=== PATIENT | female | born 1975 | race Caucasian/White ===

== ENCOUNTER 2018-02-26 16:46 | Emergency (ER) | payer OTHER ==
[~2018-02-26] VITALS: Ht 160 cm; Wt 113.4 kg
--- OUTSIDE RECORDS SUMMARY | 2018-02-26 16:49 | XMS REPORT | Summary of Care ---
Author Author Allie Pastrana M.A. Unknown Address Unknown Phone Unavailable Care Team Providers Care Daycare Manager Name Role Phone MATHEW THOMPSON M.D. Unavailable Unavailable CYRUS N.P.HANH Unavailable Unavailable Unavailable Unavailable Functional Status Name Dates Details Functional status health issues are not documented Status: Name Dates Details Cognitive status health issues are not documented Status: Problems Name Dates Details Annual physical exam (V70.0, Z00.00) Status: Active Heavy smoker (305.1, F17.200) Status: Active Positive depression screening (796.4, Z13.31) Status: Active Anxiety and depression (300.00, F41.9) Status: Active Breast screening (V76.10, Z12.31) Status: Active Encounter to discuss test results (V65.49, Z71.2) Status: Active Hyperlipidemia (272.4, E78.5) Status: Active Diabetes mellitus, type 2 (250.00, E11.9) Status: Active Diabetic neuropathy (250.60, E11.40) Status: Active Anxiety (300.00, F41.9) Status: Active Panic disorder (300.01, F41.0) Status: Active Major depression (296.20, F32.9) Status: Active Depression, unspecified depression type (311, F32.9) Status: Active Severe diarrhea (787.91, K52.9) Status: Active Nausea and vomiting (787.01, R11.2) Status: Active Medications Name Dates Details GlipiZIDE 10 MG Oral Tablet TAKE 1 TABLET DAILY. Active Lantus SOLN * Refills: 0 Active Omeprazole 40 MG Oral Capsule Delayed Release 1 tab daily * Refills: 0 Active Mcdowell 3 CAPS TAKE DIRECTED. * Refills: 0 Active Atorvastatin Calcium 10 MG Oral Tablet TAKE 1 TABLET DAILY DIRECTED. * Quantity: 90 Refills: 0 BRIDGES N.P., SHIFAT * Start : 14-Jan-2018 End : 14-Apr-2018 Active Gabapentin 300 MG Oral Capsule TAKE 1 CAPSULE 3 TIMES DAILY. * Quantity: 90 Refills: 3 BRIDGES N.P., SHIFAT * Start : 14-Jan-2018 End : 14-May-2018 Active ClonazePAM 0.5 MG Oral Tablet Take one tab twice per day as needed for episodes of high anxiety. * Quantity: 60 Refills: 2 MATHEW THOMPSON M.D. * Start : 02-Feb-2018 Active TraZODone HCl - 50 MG Oral Tablet Take one to two tabs at bedtime as needed for sleep. * Quantity: 60 Refills: 3 MATHEW THOMPSON M.D. * Start : 02-Feb-2018 Active DULoxetine HCl - 60 MG Oral Capsule Delayed Release Particles Take one cap daily. * Quantity: 30 Refills: 3 MATHEW THOMPSON M.D. * Start : 02-Feb-2018 Active Allergies and Adverse Reactions Name Dates Details No Known Drug Allergies (Allergy) Status: Active Past Medical History Name Dates Details History of anxiety (V11.8, Z86.59) Status: Resolved History of asthma (V12.69, Z87.09) Status: Resolved History of depression (V11.8, Z86.59) Status: Resolved History of diabetes mellitus (V12.29, Z86.39) Status: Resolved History of high cholesterol (V12.29, Z86.39) Status: Resolved History of History of appendectomy (V45.89, Z90.49) Status: Resolved History of History of cholecystectomy (V45.79, Z90.49) Status: Resolved History of History of hysterectomy (V88.01, Z90.710) Status: Resolved History of Reflux gastritis (535.40, K29.60) Status: Resolved History of Vision abnormalities (368.9, H53.9) Status: Resolved Procedures Procedure Dates Details [O] Urine Dipstick (In Office) Date: 26-Feb-2018 [place] Breast mammogram screen bilateral [id number] Date: 31-Dec-2017 Immunization Name Dates Details Immunizations not documented Family History Name Dates Details Family history of Alcohol abuse (305.00, F10.10) Comments: Family History Status: Active Family history of malignant neoplasm (V16.9, Z80.9) Comments: Family History Status: Active Family history of diabetes mellitus (V18.0, Z83.3) Comments: Family History Status: Active Family history of cerebrovascular accident (CVA) (V17.1, Z82.3) Comments: Family History Status: Active Family history of myocardial infarction (V17.3, Z82.49) Comments: Family History Status: Active Family history of drug abuse (V61.41, Z63.72) Comments: Family History Status: Active Name Dates Details No pertinent family history (V49.89, Z78.9) Status: Active Social History Name Dates Details - Status: Name Dates Details Current every day smoker Smoker. current status unknown Current every day smoker Never smoker Vital Signs Date Test Result Details [id number] BP Systolic 135 mm[Hg] Status: BP Diastolic 87 mm[Hg] Status: Weight 250.25 lb Status: Body Mass Index Calculated 44.33 kg/m2 Status: Body Surface Area Calculated 2.13 m2 Status: Temperature 98.2 f Status: Heart Rate 102 /min Status: O2 SAT 98 % Status: Physical Findings 12 Status: Comments: PHQ-9 Adult Depression Screening [id number]:19 BP Systolic 114 mm[Hg] Status: Comments: Location: RUE; Position: Sitting BP Diastolic 75 mm[Hg] Status: Comments: Location: RUE; Position: Sitting Weight 264.8 lb Status: Body Mass Index Calculated 46.91 kg/m2 Status: Body Surface Area Calculated 2.18 m2 Status: Temperature 97.6 f Status: Comments: Method: Tympanic Heart Rate 84 /min Status: O2 SAT 98 % Status: Comments: Source: RA Results Date Description Value Details Results not documented Plan of Care Name Dates Details Planned Observations Planned Goals not documented Planned Encounters Appointment; MATHEW THOMPSON M.D. On: 06-Apr-2018 18:30 Appointment; HANH BRIDGES NP On: 29-Apr-2018 11:00 Interventions Provided Labs/Procedures/Imaging* [O] Urine Dipstick (In Office); To Be Done: 26 Feb 2018 Plan* pt was sent to ER due to possible dehydration, pt has tachycardia and severe diarrhea 20-25 times a day with vomiting 2-3 times a day, since Thursday. Instructions Name Dates Details Instructions not documented Encounters Appointment; HANH BRIDGES NP Encounter Diagnosis: Problem not documented On: 31-Dec-2017 9:15 Appointment; TONYA BAL LCSW Encounter Diagnosis: Problem not documented On: 07-Jan-2018 8:00 Appointment; HANH BRIDGES NP Encounter Diagnosis: Problem not documented On: 14-Jan-2018 15:00 Appointment; TONYA BAL LCSW Encounter Diagnosis: Problem not documented On: 21-Jan-2018 10:00 Appointment; MATHEW THOMPSON M.D. Encounter Diagnosis: Problem not documented On: 02-Feb-2018 17:30 Appointment; TONYA BAL LCSW Encounter Diagnosis: Problem not documented On: 04-Feb-2018 10:00 Appointment; HANH BRIDGES NP Encounter Diagnosis: Problem not documented On: 26-Feb-2018 14:15
--- OUTSIDE RECORDS SUMMARY | 2018-02-26 16:49 | XMS REPORT | Clinical Summary ---
Author Author [facility] Address Unknown Phone Unavailable Care Team Providers Care Top Tile Decorator Name Role Phone Fred Roach MD PCP Allergies No Known Allergies Current Medications Prescription Sig. Disp. Refills Start End Date Status Date cephalexin (KEFLEX) 500 Take 1 capsule (500 mg 20 capsule 0 02/10/20 02/10/20 Discontin MG capsule total) by mouth 2 (two) 18 18 ued times a day for 10 days. ondansetron (ZOFRAN) 4 MG Take 1 tablet (4 mg 12 tablet 0 02/10/20 02/10/20 Discontin tablet total) by mouth every 6 18 18 ued (six) hours for 3 days. cephalexin (KEFLEX) 500 Take 1 capsule (500 mg 20 capsule 0 02/10/20 02/20/20 MG capsule total) by mouth 2 (two) 18 18 times a day for 10 days. ondansetron (ZOFRAN) 4 MG Take 1 tablet (4 mg 12 tablet 0 02/10/20 02/13/20 tablet total) by mouth every 6 18 18 (six) hours as needed for nausea or vomiting for up to 3 days. fluconazole (DIFLUCAN) Take 1 tablet (150 mg 1 tablet 0 02/10/20 02/10/20 150 MG tablet total) by mouth once for 18 18 1 dose. Active Problems Not on file Encounters Date Type Specialty Care Team Description 02/09/2018 Emergency Emergency Medicine Paul Higgins MD Urinary tract infection without hematuria, site unspecified (Primary Dx); Medication side effect, initial encounter after 02/25/2017 Social History Tobacco Use Types Packs/Day Years Used Date Current Every Day Smoker Alcohol Use Drinks/Week oz/Week Comments No Sex Assigned at Date Recorded Not on file Last Filed Vital Signs Vital Sign Reading Time Taken Blood Pressure 124/67 02/09/2018 7:15 PM CDT Pulse 64 02/09/2018 7:15 PM CDT Temperature 36.9 C (98.5 F) 02/09/2018 7:15 PM CDT Respiratory Rate 17 02/09/2018 7:15 PM CDT Oxygen Saturation 94% 02/09/2018 5:21 PM CDT Inhaled Oxygen - - Concentration Weight 120 kg (265 lb) 02/09/2018 3:02 PM CDT Height 160 cm (5' 3") 02/09/2018 3:02 PM CDT Body Mass Index 46.94 02/09/2018 3:02 PM CDT Plan of Treatment Not on file Procedures Procedure Name Priority Date/Time Associated Diagnosis Comments ESTIMATED GFR STAT 02/09/2018 Results for this 4:28 PM CDT procedure are in the results section. HCG QUALITATIVE, SERUM STAT 02/09/2018 Results for this SCREEN 4:28 PM CDT procedure are in the results section. HC COMPLETE BLD COUNT STAT 02/09/2018 Results for this W/AUTO DIFF 4:28 PM CDT procedure are in the results section. COMPREHENSIVE METABOLIC STAT 02/09/2018 Results for this PANEL 4:28 PM CDT procedure are in the results section. URINALYSIS SCREEN AND STAT 02/09/2018 Results for this MICROSCOPY, WITH REFLEX 4:23 PM CDT procedure are in the TO CULTURE results section. GRAM STAIN STAT 02/09/2018 Results for this 4:23 PM CDT procedure are in the results section. URINE CULTURE STAT 02/09/2018 Results for this 4:23 PM CDT procedure are in the results section. after 02/25/2017 Results * Estimated GFR (02/09/2018 4:28 PM) Estimated GFR >=90 mL/min/1.73 m2 [facility] DEPARTMENT OF Comment: PATHOLOGY AND CatergoryUnitsInte GENOMIC MEDICINE rpretation G1 >=90 Normal or high G2 60-89Mildly decreased [id number] Mildly to moderately decreased S3q46-05 Moderately to severely decreased G4 15-29Severely decreased G5 <15Kidney failure The eGFR was calculated using the Chronic Kidney Disease Epidemiology Collaboration (CKD-EPI) equation. Interpretation is based on recommendations of the National Kidney Foundation-Kidney Disease Outcomes Quality Initiative (NKF-KDOQI) published in 2014. Specimen Plasma specimen Performing Organization Address City/[facility]/Zipcode Phone Number [facility] [id number] [place], [place] [address]y. [address] [phone] PATHOLOGY AND GENOMIC MEDICINE * CBC with platelet and differential (02/09/2018 4:28 PM) WBC 13.7 (H) 4.5 - 11.0 k/uL [facility] DEPARTMENT OF PATHOLOGY AND GENOMIC MEDICINE RBC 5.30 4.20 - 5.50 M/uL [facility] DEPARTMENT OF PATHOLOGY AND GENOMIC MEDICINE HGB 16.7 14.0 - 18.0 g/dL [facility] DEPARTMENT OF PATHOLOGY AND GENOMIC MEDICINE HCT 47.8 (H) 37.0 - 47.0 % [facility] DEPARTMENT OF PATHOLOGY AND GENOMIC MEDICINE MCV 90.2 82.0 - 100.0 fL [facility] DEPARTMENT OF PATHOLOGY AND GENOMIC MEDICINE MCH 31.5 27.0 - 34.0 pg [facility] DE[facility]OLOG[facility] AND GENOMIC MEDICINE MCHC 34.9 31.0 - 37.0 g/dL [facility] DEPARTMENT OF PATHOLOGY AND GENOMIC MEDICINE RDW - SD 40.1 37.0 - 55.0 fL [facility] DEPARTMENT OF PATHOLOGY AND GENOMIC MEDICINE MPV 10.7 8.8 - 13.2 fL [facility] DE[facility] OF PATHOLOGY AND GENOMIC MEDICINE Platelet count 259 150 - 400 K/uL [facility] DEPARTMENT OF PATHOLOGY AND GENOMIC MEDICINE Nucleated RBC 0.00 /100 WBC [facility] DEPARTMENT OF PATHOLOGY AND GENOMIC MEDICINE Neutrophils 64.9 39.0 - 69.0 % [facility] DEPARTMENT OF PATHOLOGY AND GENOMIC MEDICINE Lymphocytes 25.8 25.0 - 45.0 % [facility] DEPARTMENT OF PATHOLOGY AND GENOMIC MEDICINE Monocytes 6.2 0.0 - 10.0 % [facility] DEPARTMENT OF PATHOLOGY AND GENOMIC MEDICINE Eosinophils 2.1 0.0 - 5.0 % [facility] DEPARTMENT OF PATHOLOGY AND GENOMIC MEDICINE Basophils 0.6 0.0 - 1.0 % [facility] DEPARTMENT OF PATHOLOGY AND GENOMIC MEDICINE Immature granulocytes 0.4Comment: "Immature 0.0 - 1.0 % [facility] DEPARTMENT OF granulocytes" (promyelocytes, PATHOLOGY AND myelocytes, metamyelocytes) GENOMIC MEDICINE Specimen Blood Performing Organization Address City/State/Zipcode Phone Number [facility] [id number] [place] [address] [address] [phone] PATHOLOGY AND GENOMIC MEDICINE * hCG qualitative, serum screen (02/09/2018 4:28 PM) hCG qualitative, serum NegativeComment: Sensitivity: [facility] DEPARTMENT OF 10 mlUhCG/mL in Serum PATHOLOGY AND GENOMIC MEDICINE Specimen Blood Performing Organization Address City/[facility]/Zipcode Phone Number [address] [phone] PATHOLOGY AND GENOMIC MEDICINE * Comprehensive metabolic panel (02/09/2018 4:28 PM) Sodium 142 135 - 148 mEq/L [facility] DEPARTMENT OF PATHOLOGY AND GENOMIC MEDICINE Potassium 4.2 3.5 - 5.0 mEq/L [facility] DEPARTMENT OF PATHOLOGY AND GENOMIC MEDICINE Chloride 101 99 - 109 mEq/L [facility] DEPARTMENT OF PATHOLOGY AND GENOMIC MEDICINE CO2 27 24 - 31 mEq/L [facility] DEPARTMENT OF PATHOLOGY AND GENOMIC MEDICINE Anion gap 14@ANIO 7 - 15 mEq/L [facility] DEPARTMENT OF PATHOLOGY AND GENOMIC MEDICINE BUN 10 8 - 24 mg/dL [facility] DEPARTMENT OF PATHOLOGY AND GENOMIC MEDICINE Creatinine 0.80 0.50 - 0.90 mg/dL [facility] DEPARTMENT OF PATHOLOGY AND GENOMIC MEDICINE Glucose 246 (H) 65 - 99 mg/dL [facility] DEPARTMENT OF PATHOLOGY AND GENOMIC MEDICINE Calcium 9.9 8.6 - 10.6 mg/dL [facility] DEPARTMENT OF PATHOLOGY AND GENOMIC MEDICINE Protein 7.5 6.3 - 8.2 g/dL [facility] DEPARTMENT OF PATHOLOGY AND GENOMIC MEDICINE Albumin 4.6 3.5 - 5.0 g/dL [facility] DEPARTMENT OF PATHOLOGY AND GENOMIC MEDICINE A/G ratio 1.59 0.70 - 3.80 [facility] DEPARTMENT OF PATHOLOGY AND GENOMIC MEDICINE Alkaline phosphatase 93 30 - 115 U/L [facility] DEPARTMENT OF PATHOLOGY AND GENOMIC MEDICINE AST 36 15 - 46 U/L [facility] DEPARTMENT OF PATHOLOGY AND GENOMIC MEDICINE ALT 34 10 - 55 U/L [facility] DEPARTMENT OF PATHOLOGY AND GENOMIC MEDICINE Total bilirubin 0.4 0.2 - 1.2 mg/dL [facility] DEPARTMENT OF PATHOLOGY AND GENOMIC MEDICINE Specimen Plasma specimen Performing Organization Address City/[facility]/Zipcode Phone Number [facility] [id number] [place], [place] [address]y. [address] [place] [address] PATHOLOGY AND GENOMIC MEDICINE * Urinalysis screen and microscopy, with reflex to culture (02/09/2018 4:23 PM) Specimen site Clean catch [facility] DEPARTMENT OF PATHOLOGY AND GENOMIC MEDICINE Color, UA Carolyne YELLOW [facility] DEPARTMENT OF PATHOLOGY AND GENOMIC MEDICINE Appearance, UA Hazy (A) Clear [facility] DEPARTMENT OF PATHOLOGY AND GENOMIC MEDICINE Specific gravity, UA 1.023 1.005 - 1.030 [facility] DEPARTMENT OF PATHOLOGY AND GENOMIC MEDICINE pH, UA 5.0 5.0 - 8.0 [facility] DEPARTMENT OF PATHOLOGY AND GENOMIC MEDICINE Protein, UA 1+ (A) Negative [facility] DEPARTMENT OF PATHOLOGY AND GENOMIC MEDICINE Glucose, UA 3+ (A) Negative [facility] DEPARTMENT OF PATHOLOGY AND GENOMIC MEDICINE Ketones, UA Trace (A) Negative [facility] DEPARTMENT OF PATHOLOGY AND GENOMIC MEDICINE Bilirubin, UA Negative Negative [facility] DEPARTMENT OF PATHOLOGY AND GENOMIC MEDICINE Blood, UA Negative Negative [facility] DEPARTMENT OF PATHOLOGY AND GENOMIC MEDICINE Nitrite, UA Positive (A) NEGATIVE [facility] DEPARTMENT OF PATHOLOGY AND GENOMIC MEDICINE Urobilinogen, UA <2.0 <2.0 E.U./dL [facility] DEPARTMENT OF PATHOLOGY AND GENOMIC MEDICINE Leukocyte esterase, UA Trace (A) Negative [facility] DEPARTMENT OF PATHOLOGY AND GENOMIC MEDICINE Epithelial cells, UA 4 0 - 15 /HPF [facility] DEPARTMENT OF PATHOLOGY AND GENOMIC MEDICINE WBC, UA 7 (H) 0 - 5 /Hpf [facility] DEPARTMENT OF PATHOLOGY AND GENOMIC MEDICINE RBC, UA 4 0 - 5 /HPF [facility] DEPARTMENT OF PATHOLOGY AND GENOMIC MEDICINE Bacteria, UA Many (A) None seen [facility] DEPARTMENT OF PATHOLOGY AND GENOMIC MEDICINE Yeast, UA None seen None Seen [facility] DEPARTMENT OF PATHOLOGY AND GENOMIC MEDICINE Yeast with pseudohyphae, None seen [facility] DEPARTMENT OF UA PATHOLOGY AND GENOMIC MEDICINE Specimen Urine Performing Organization Address City/[facility]/Zipcode Phone Number [facility] DEPARTMENT [address] [address] PATHOLOGY AND GENOMIC MEDICINE * Gram stain (02/09/2018 4:23 PM) Gram stain result No WBC's [facility] DEPARTMENT OF Moderate Gram negative rods PATHOLOGY AND Comment: GENOMIC MEDICINE Specimen Information Specimen Source: Urine Specimen Site: Clean catch Specimen Urine Performing Organization Address City/State/Zipcode Phone Number [facility] DEPARTMENT OF [address] [place] [address] PATHOLOGY AND GENOMIC MEDICINE * Urine culture (02/09/2018 4:23 PM) Urine culture isolate Escherichia coli [facility] DEPARTMENT OF >10-5 cfu/ml PATHOLOGY AND (A) GENOMIC MEDICINE Comment: Specimen Information Specimen Source: Urine Specimen Site: Clean catch Urine culture isolate Mixed Gram positive franca [facility] DEPARTMENT OF 10-1 cfu/ml PATHOLOGY AND (A) GENOMIC MEDICINE Specimen Urine Organism Antibiotic Method Susceptibility Escherichia coli Amikacin NICKOLAS <=4 mcg/mL: Susceptible Escherichia coli Amoxicillin/Clavulanate NICKOLAS 8/4 mcg/mL: Susceptible Escherichia coli Ampicillin/Sulbactam NICKOLAS 8/4 mcg/mL: Susceptible Escherichia coli Ampicillin NICKOLAS 16 mcg/mL: Resistant Escherichia coli Aztreonam NICKOLAS <=1 mcg/mL: Susceptible Escherichia coli Cefazolin NICKOLAS 2 mcg/mL: Susceptible Escherichia coli Cefoxitin NICKOLAS 8 mcg/mL: Susceptible Escherichia coli Ceftazidime NICKOLAS <=0.5 mcg/mL: Susceptible Escherichia coli Ceftriaxone NICKOLAS <=0.5 mcg/mL: Susceptible Escherichia coli Cefuroxime Sodium NICKOLAS 8 mcg/mL: Susceptible Escherichia coli Ciprofloxacin NICKOLAS >2 mcg/mL: Resistant Escherichia coli Ertapenem NICKOLAS <=0.13 mcg/mL: Susceptible Escherichia coli Gentamicin NICKOLAS <=1 mcg/mL: Susceptible Escherichia coli Imipenem NICKOLAS <=0.25 mcg/mL: Susceptible Escherichia coli Levofloxacin NICKOLAS >4 mcg/mL: Susceptible Escherichia coli Meropenem NICKOLAS <=0.13 mcg/mL: Susceptible Escherichia coli Minocycline NICKOLAS <=1 mcg/mL: Susceptible Escherichia coli Nitrofurantoin NICKOLAS 32 mcg/mL: Susceptible Escherichia coli Piperacillin/Tazobactam NICKOLAS 4/4 mcg/mL: Susceptible Escherichia coli Tetracycline NICKOLAS 2 mcg/mL: Susceptible Escherichia coli Tigecycline NICKOLAS <=0.5 mcg/mL: Susceptible Escherichia coli Tobramycin NICKOLAS 1 mcg/mL: Susceptible Escherichia coli Trimethoprim/Sulfamethoxa NICKOLAS >2/38 mcg/mL: Resistant daily [facility] Organization Address City/State/Zipcode Phone Number [phone] [place] [address] PATHOLOGY AND GENOMIC MEDICINE after 02/25/2017 Insurance Payer Benefit Subscriber ID Type Phone Address Plan / Group [employer]UT[employer] EXCHANGE LUTZ xxxxxxxxx Exchange [employer] E EXCHANGE
[2018-02-26] MEDS ORDERED: SODIUM CHLORIDE 0.9% 1000ML 1,000 ML IV STA (18:00)
[2018-02-26] MEDS ORDERED: ONDANSETRON HCL INJ 2 MG/ML VIAL ONE (18:11)
[2018-02-26] MEDS ORDERED: ONDANSETRON HCL INJ 2 MG/ML VIAL IV STA (18:11)
[2018-02-26 18:50] LABS: CLARITY,URINE SL CLOUDY (CLEAR); COLOR,URINE YELLOW (YELLOW)
[2018-02-26 18:51] LABS: BILIRUBIN,URINE NEGATIVE (NEGATIVE); KETONES,URINE NEGATIVE (NEGATIVE); LEUKOCYTE ESTERASE ,URINE NEGATIVE (NEGATIVE); NITRITE,URINE NEGATIVE (NEGATIVE); PREGNANCY TEST, URINE NEGATIVE (NEGATIVE); PROTEIN,URINE DIPSTICK TRACE (NEGATIVE); URINE UROBILINOGEN 0.2 mg/dL (0.2 - 1)
[2018-02-26 18:52] LABS: BASOPHILS # (AUTO) 0.1 (0.0-0.1); BASOPHILS % 0.6 % (0.0-1.0); EOSINOPHILS # (AUTO) 0.4 (0.0-0.4); EOSINOPHILS % 2.9 % (0.0-6.0); HEMOGLOBIN 17.3 g/dL (12.0-16.0); LYMPHOCYTES # (AUTO) 4.6 (1.0-3.2); LYMPHOCYTES % 36.1 % (18.0-39.1); MEAN CORPUSCULAR HEMOGLOBIN 30.8 pg (28-32); MEAN CORPUSCULAR HGB CONC 34.6 g/dL (31-35); MONOCYTES % 7.9 % (4.4-11.3); NEUTROPHILS # (AUTO) 6.6 (2.1-6.9); NEUTROPHILS % 52.3 % (38.7-80.0); PLATELET COUNT 262 x10e3/uL (140-360); RED BLOOD COUNT 5.62 x10e6/uL (3.6-5.1); RED CELL DISTRIBUTION WIDTH 11.9 % (11.7-14.4)
[2018-02-26 19:01] LABS: AMORPHOUS SEDIMENT,URINE MODERATE (FEW); BACTERIA,URINE MANY /HPF; EPITHELIAL CELLS,URINE MODERATE /LPF; MUCUS,URINE MODERATE (RARE); TRANSITIONAL EPI CELLS,URINE FEW
[2018-02-26 19:02] LABS: HYALINE CASTS 0-1 (0-1)
[2018-02-26 19:11] LABS: ALANINE AMINOTRANSFERASE 48 IU/L (0-55); ALBUMIN 3.9 g/dL (3.5-5.0); ALBUMIN/GLOBULIN RATIO 1.1 (0.8-2.0); ALKALINE PHOSPHATASE 86 IU/L (40-150); ANION GAP 17.7 mmol/L (8-16); BLOOD UREA NITROGEN 10 mg/dL (7-26); BUN/CREATININE RATIO 12 (6-25); CALCIUM 9.9 mg/dL (8.4-10.2); CARBON DIOXIDE 20 mmol/L (22-29); CHLORIDE 102 mmol/L (98-107); CREATININE, SERUM 0.86 mg/dL (0.57-1.11); EST GLOMERULAR FILTRATION RATE > 60 ML/MIN (60-); GLUCOSE 237 mg/dL (74-118); POTASSIUM 3.7 mmol/L (3.5-5.1); SODIUM 136 mmol/L (136-145)
[2018-02-26 21:49] VITALS: BP 115/80
== END 2018-02-26 22:03 | disposition home or self-care (01) ==
LOC: ER 16:46
DX: R11.2 Nausea with vomiting, unspecified (principal); R19.7 Diarrhea, unspecified
CPT/HCPCS: 36415; 80053; 81001; 81025; 85025; 99284; J2405; J7030